=== PATIENT | female | born 1940 | race Native Hawaiian/Other Pacific Islander ===

== ENCOUNTER 2016-03-25 08:37 | Outpatient (CLI) | payer OTHER, MEDICARE | END 2016-03-25 20:08 | disposition home or self-care (01) | LOC: US 08:37 | DX: R14.0 Abdominal distension (gaseous) (principal) ==

== ENCOUNTER 2016-04-20 17:09 | Emergency (ER) | payer OTHER, MEDICARE ==
[~2016-04-20] VITALS: Ht 154.9 cm; Wt 64.0 kg
[2016-04-20] MEDS ORDERED: LISI20TA11 PO (17:44)
[2016-04-20] MEDS ORDERED: LISITAB PO (17:44)
[2016-04-20] MEDS ORDERED: LEVO0.0529 PO (17:45)
[2016-04-20 18:29] LABS: PLATELET COUNT 204 K/uL (152-353)
[2016-04-20 18:40] LABS: POTASSIUM 3.4 mmol/L (3.6-5.2); SODIUM 134 mmol/L (136-145)
[2016-04-20 19:09] VITALS: BP 164/78; TEMP 98.3
== END 2016-04-20 19:10 | disposition home or self-care (01) ==
LOC: ED 17:09
PROVIDERS: Specialist
DX: R14.0 Abdominal distension (gaseous) (principal)
CPT/HCPCS: 80053; 85027; 99283

== ENCOUNTER 2016-09-25 09:03 | Outpatient (CLI) | payer OTHER, MEDICARE ==
[~2016-09-25 09:03] MED LIST: LEVO0.0529 PO; LISI20TA11 PO; LISITAB PO
[2016-09-25 10:13] LABS: PLATELET COUNT 187 K/uL (152-353)
[2016-09-25 10:38] LABS: POTASSIUM 4.2 mmol/L (3.6-5.2); SODIUM 139 mmol/L (136-145)
== END 2016-09-25 10:05 | disposition home or self-care (01) ==
LOC: LABW 09:03
PROVIDERS: Nurse Practitioner
DX: I10 Essential (primary) hypertension (principal); E03.8 Other specified hypothyroidism; E78.00 Pure hypercholesterolemia, unspecified; Z86.2 Personal history of diseases of the blood and blood-forming organs and certain disorders involving the immune mechanism; E55.9 Vitamin D deficiency, unspecified
CPT/HCPCS: 36415; 80053; 80061; 82306; 82607; 83036; 84443; 85027

== ENCOUNTER 2016-10-20 00:39 | Emergency (ER) | payer OTHER, MEDICARE ==
[~2016-10-20] VITALS: Ht 154.9 cm; Wt 65.8 kg
[2016-10-20] MEDS ORDERED: HYOSCYAMINE0.125 M2 PO (00:49)
[2016-10-20 01:45] LABS: PLATELET COUNT 196 K/uL (152-353)
[2016-10-20 01:56] LABS: POTASSIUM 3.8 mmol/L (3.6-5.2)
[2016-10-20 02:36] VITALS: BP 160/63; TEMP 98.3
== END 2016-10-20 02:38 | disposition home or self-care (01) ==
LOC: ED 00:39
PROVIDERS: Specialist
DX: R10.84 Generalized abdominal pain (principal)
CPT/HCPCS: 36415; 80053; 81000; 85027; 99283

== ENCOUNTER 2016-12-11 12:36 | Outpatient (CLI) | payer OTHER, MEDICARE ==
[~2016-12-11 12:36] MED LIST changes: +HYOSCYAMINE0.125 M2 PO
== END 2016-12-11 19:07 | disposition home or self-care (01) ==
LOC: MAMMO 12:36
DX: Z12.31 Encounter for screening mammogram for malignant neoplasm of breast (principal); M54.2 Cervicalgia; I10 Essential (primary) hypertension

== ENCOUNTER 2017-02-26 15:22 | Outpatient (CLI) | payer OTHER, MEDICARE | END 2017-02-27 05:21 | disposition home or self-care (01) | LOC: LABW 15:22 | DX: E03.8 Other specified hypothyroidism (principal) | CPT/HCPCS: 36415; 84443 ==

== ENCOUNTER 2017-02-28 14:06 | Emergency (ER) | payer OTHER, MEDICARE ==
[~2017-02-28] VITALS: Ht 154.9 cm; Wt 66.2 kg
[2017-02-28 14:14] VITALS: TEMP 97.9
[2017-02-28 16:07] LABS: PLATELET COUNT 209 K/uL (152-353)
[2017-02-28 16:24] LABS: POTASSIUM 4.1 mmol/L (3.6-5.2); SODIUM 135 mmol/L (136-145)
[2017-02-28 16:48] VITALS: BP 154/74
== END 2017-02-28 16:48 | disposition home or self-care (01) ==
LOC: ED 14:06
PROVIDERS: Specialist
DX: I10 Essential (primary) hypertension (principal)
CPT/HCPCS: 80048; 81000; 85027; 99283

== ENCOUNTER 2017-10-10 19:58 | Emergency (ER) | payer OTHER ==
[~2017-10-10] VITALS: Ht 154.9 cm; Wt 67.1 kg
[2017-10-10] MEDS ORDERED: HYZAAR1 TA1 PO (20:12)
[2017-10-10 21:21] VITALS: BP 156/93; TEMP 98.6
== END 2017-10-10 21:21 | disposition home or self-care (01) ==
LOC: ED 19:58
DX: L98.8 Other specified disorders of the skin and subcutaneous tissue (principal); I10 Essential (primary) hypertension; E03.8 Other specified hypothyroidism
CPT/HCPCS: 99282

== ENCOUNTER 2017-12-08 06:25 | Outpatient (CLI) | payer OTHER ==
[~2017-12-08 06:25] MED LIST changes: +HYZAAR1 TA1 PO
== END 2017-12-08 19:11 | disposition home or self-care (01) ==
LOC: LABW 06:25
DX: E03.9 Hypothyroidism, unspecified (principal)
CPT/HCPCS: 36415; 84439; 84443

== ENCOUNTER 2017-12-14 08:48 | Outpatient (CLI) | payer OTHER | END 2017-12-14 21:20 | disposition home or self-care (01) | LOC: MAMMO 08:48 | DX: Z12.31 Encounter for screening mammogram for malignant neoplasm of breast (principal) ==

== ENCOUNTER 2018-01-03 08:51 | Outpatient (CLI) | payer OTHER | END 2018-01-03 22:51 | disposition home or self-care (01) | LOC: US 08:51 | DX: D73.89 Other diseases of spleen (principal) ==

== ENCOUNTER 2018-01-20 18:20 | Emergency (ER) | payer OTHER ==
[~2018-01-20] VITALS: Ht 154.9 cm; Wt 67.1 kg
[2018-01-20] MEDS ORDERED: LISI20TA11 PO (18:51)
[2018-01-20] MEDS ORDERED: LISI20TA31 PO (18:51)
[2018-01-20 23:28] VITALS: BP 118/56; TEMP 98.2
== END 2018-01-20 23:30 | disposition home or self-care (01) ==
LOC: ED 18:20
DX: I10 Essential (primary) hypertension (principal)
CPT/HCPCS: 99282

== ENCOUNTER 2018-03-09 11:25 | Emergency (ER) | payer OTHER ==
[~2018-03-09] VITALS: Ht 154.9 cm; Wt 67.1 kg
[~2018-03-09 11:25] MED LIST changes: +LISI20TA31 PO
[2018-03-09 11:33] VITALS: TEMP 98
[2018-03-09] MEDS ORDERED: LEVO0.0218 PO (11:44)
[2018-03-09] MEDS ORDERED: LEVO0.1T6 PO (11:44)
[2018-03-09 12:22] VITALS: BP 178/79
== END 2018-03-09 12:27 | disposition home or self-care (01) ==
LOC: ED 11:25
DX: Z04.1 Encounter for examination and observation following transport accident (principal)
CPT/HCPCS: 99283

== ENCOUNTER 2018-06-08 09:58 | Outpatient (CLI) | payer OTHER ==
[~2018-06-08 09:58] MED LIST changes: +LEVO0.0218 PO; +LEVO0.1T6 PO
[2018-06-08 10:36] LABS: PLATELET COUNT 256 K/uL (152-353)
[2018-06-08 11:01] LABS: POTASSIUM 4.4 mmol/L (3.6-5.2)
== END 2018-06-08 23:44 | disposition home or self-care (01) ==
LOC: LABW 09:58
PROVIDERS: Nurse Practitioner
DX: I10 Essential (primary) hypertension (principal); E78.00 Pure hypercholesterolemia, unspecified; R53.83 Other fatigue; E53.8 Deficiency of other specified B group vitamins; E03.8 Other specified hypothyroidism
CPT/HCPCS: 36415; 80053; 80061; 82607; 84443; 85027

== ENCOUNTER 2018-06-20 09:25 | Outpatient (CLI) | payer OTHER | END 2018-06-20 19:24 | disposition home or self-care (01) | LOC: RAD 09:25 | DX: Z78.0 Asymptomatic menopausal state (principal); D73.89 Other diseases of spleen ==

== ENCOUNTER 2018-08-19 11:39 | Outpatient (CLI) | payer OTHER | END 2018-08-19 19:09 | disposition home or self-care (01) | LOC: LABW 11:39 | DX: E03.9 Hypothyroidism, unspecified (principal) | CPT/HCPCS: 36415; 84439; 84443; 84479 ==

== ENCOUNTER 2018-12-13 07:55 | Emergency (ER) | payer OTHER ==
[~2018-12-13] VITALS: Ht 154.9 cm; Wt 67.1 kg
[2018-12-13 08:50] LABS: PLATELET COUNT 179 K/uL (152-353)
[2018-12-13 11:53] VITALS: BP 161/68; TEMP 98
== END 2018-12-13 11:53 | disposition home or self-care (01) ==
LOC: ED 07:55
PROVIDERS: Family Medicine
DX: R16.1 Splenomegaly, not elsewhere classified (principal); K59.09 Other constipation; R10.12 Left upper quadrant pain
CPT/HCPCS: 36415; 80053; 81000; 85027; 99283; Q9963

== ENCOUNTER 2018-12-16 08:23 | Outpatient (CLI) | payer OTHER | END 2018-12-16 21:52 | disposition home or self-care (01) | LOC: MAMMO 08:23 | DX: Z12.31 Encounter for screening mammogram for malignant neoplasm of breast (principal) ==

== ENCOUNTER 2020-10-08 15:29 | Emergency (ER) | payer OTHER ==
[~2020-10-08] VITALS: Ht 154.9 cm; Wt 65.8 kg
[2020-10-08 15:45] VITALS: TEMP 98
[2020-10-08 16:51] VITALS: BP 178/82
== END 2020-10-08 17:05 | disposition home or self-care (01) ==
LOC: ED 15:29
PROC: 0HQKXZZ Repair Right Lower Leg Skin, External Approach (ICD-10-PCS; principal; 2020-10-08)
DX: I83.891 Varicose veins of right lower extremity with other complications (principal); W26.9XXA Contact with unspecified sharp object(s), initial encounter; Y92.89 Other specified places as the place of occurrence of the external cause
CPT/HCPCS: 99282

== ENCOUNTER 2022-01-04 12:46 | Emergency (ER) | payer OTHER ==
[~2022-01-04] VITALS: Ht 154.9 cm; Wt 63.5 kg
[2022-01-04 13:39] LABS: PLATELET COUNT 248 K/uL (152-353)
[2022-01-04 13:43] LABS: POTASSIUM 3.5 mmol/L (3.6-5.2)
[2022-01-04 13:50] LABS: PARTIAL THROMBOPLASTIN TIME 27.2 SECONDS (24.5-33.6)
[2022-01-04 16:35] VITALS: BP 180/80; TEMP 98.8
== END 2022-01-04 16:35 | disposition home or self-care (01) ==
LOC: ED 12:46
PROVIDERS: Emergency Medicine
DX: R53.1 Weakness (principal); Z79.899 Other long term (current) drug therapy; Z51.81 Encounter for therapeutic drug level monitoring
CPT/HCPCS: 36415; 80053; 81002; 83880; 84443; 85027; 85610; 85730; 93005; 99284

== ENCOUNTER 2022-02-26 14:52 | Inpatient (IN) | payer OTHER | END 2022-03-25 08:55 | disposition still patient (30) | LOC: PAVB 14:52 | PROVIDERS: ADMIT Family Medicine; ATTEND Family Medicine ==

== ENCOUNTER 2022-02-27 05:31 | Outpatient (CLI) | payer OTHER ==
[2022-02-27 07:33] LABS: PLATELET COUNT 231 K/uL (152-353)
[2022-02-27 09:12] LABS: POTASSIUM 3.7 mmol/L (3.6-5.2)
== END 2022-02-27 19:25 | disposition home or self-care (01) ==
LOC: LAB 05:31
PROVIDERS: ATTEND Family Medicine
DX: I10 Essential (primary) hypertension (principal)
CPT/HCPCS: 80053; 80061; 85027; 87081

== ENCOUNTER 2022-03-06 07:44 | Outpatient (CLI) | payer OTHER | END 2022-03-06 19:06 | disposition home or self-care (01) | LOC: LAB 07:44 | PROVIDERS: ATTEND Family Medicine | DX: M10.9 Gout, unspecified (principal); E03.8 Other specified hypothyroidism; E55.9 Vitamin D deficiency, unspecified | CPT/HCPCS: 82306; 84443; 84550 ==

== ENCOUNTER 2022-03-16 08:30 | Outpatient (CLI) | payer OTHER | END 2022-03-16 19:22 | disposition home or self-care (01) | LOC: LAB 08:30 | PROVIDERS: ATTEND Family Medicine | DX: M19.90 Unspecified osteoarthritis, unspecified site (principal); M10.9 Gout, unspecified; M79.672 Pain in left foot; M79.671 Pain in right foot | CPT/HCPCS: 84550; 86140 ==

== ENCOUNTER 2022-03-25 08:00 | Outpatient (CLI) | payer OTHER ==
[2022-03-25 08:45] LABS: PLATELET COUNT 220 K/uL (152-353)
[2022-03-25 09:16] LABS: POTASSIUM 4.1 mmol/L (3.6-5.2)
== END 2022-03-25 19:04 | disposition home or self-care (01) ==
LOC: LAB 08:00
PROVIDERS: ATTEND Family Medicine
DX: I10 Essential (primary) hypertension (principal)
CPT/HCPCS: 80053; 80061; 85027

== ENCOUNTER 2022-03-25 11:33 | Inpatient (IN) | payer OTHER | END 2022-04-22 14:21 | disposition still patient (30) | LOC: PAVB 11:33 | PROVIDERS: ADMIT Family Medicine; ATTEND Family Medicine ==

== ENCOUNTER 2022-04-22 14:42 | Inpatient (IN) | payer OTHER | END 2022-05-23 12:11 | disposition still patient (30) | LOC: PAVB 14:42 | PROVIDERS: ADMIT Family Medicine; ATTEND Family Medicine ==

== ENCOUNTER 2022-05-18 05:36 | Outpatient (CLI) | payer OTHER ==
[2022-05-18 09:00] LABS: POTASSIUM 4.3 mmol/L (3.6-5.2)
== END 2022-05-18 18:54 | disposition home or self-care (01) ==
LOC: LAB 05:36
PROVIDERS: ATTEND Family Medicine
DX: M19.90 Unspecified osteoarthritis, unspecified site (principal); I10 Essential (primary) hypertension
CPT/HCPCS: 80053

== ENCOUNTER 2022-05-23 12:20 | Inpatient (IN) | payer OTHER | END 2022-06-22 14:08 | disposition still patient (30) | LOC: PAVB 12:20 | PROVIDERS: ADMIT Family Medicine; ATTEND Family Medicine ==

== ENCOUNTER 2022-06-22 14:24 | Inpatient (IN) | payer OTHER | END 2022-07-23 11:30 | disposition still patient (30) | LOC: PAVB 14:24 | PROVIDERS: ADMIT Family Medicine; ATTEND Family Medicine ==

== ENCOUNTER 2022-07-23 11:41 | Inpatient (IN) | payer OTHER | END 2022-08-22 17:38 | disposition still patient (30) | LOC: PAVB 11:41 | PROVIDERS: ADMIT Family Medicine; ATTEND Family Medicine ==

== ENCOUNTER 2022-08-24 08:06 | Outpatient (CLI) | payer OTHER | END 2022-08-24 19:24 | disposition home or self-care (01) | LOC: LAB 08:06 | PROVIDERS: ATTEND Family Medicine | DX: M10.9 Gout, unspecified (principal); E55.9 Vitamin D deficiency, unspecified; Z79.899 Other long term (current) drug therapy | CPT/HCPCS: 36415; 82306; 84443; 84550 ==